=== PATIENT | female | born 1965 | race Caucasian/White ===

== ENCOUNTER 2020-10-30 10:34 | Observation (INO) | payer MEDICARE, OTHER ==
[2020-10-30] MEDS ORDERED: ASPIRIN 81 MG PO STA (10:47)
[2020-10-30] MEDS ORDERED: ONDANSETRON 4 MG/2 ML VIAL IVP STA (11:02)
[2020-10-30 11:06] LABS: Basophils # (A) 0.1 k/uL (0-0.2); Basophils % (A) 1 %; Eosinophils % (A) 0 %; HCT 42.6 % (34.0-46.0); HGB 14.1 gm/dL (11.4-16.0); Lymphocytes # (A) 3.4 k/uL (1.0-4.8); Lymphocytes % (A) 26 %; MCHC 33.2 g/dL (31.0-37.0); MCV 96.5 fL (80.0-100.0); Mean Platelet Volume 7.5; Monocytes # (A) 0.3 k/uL (0-1.0); Monocytes % (A) 3 %; Neutrophils # (A) 8.9 k/uL (1.3-7.7); Neutrophils % (A) 69 %; Platelet Count 310 k/uL (150-450); RBC 4.41 m/uL (3.80-5.40); RDW 13.7 % (11.5-15.5); WBC 12.9 k/uL (3.8-10.6)
[2020-10-30 11:16] LABS: INR 0.9 (<1.2); Partial Thromboplastin Time 24.8 sec (22.0-30.0); Prothrombin Time 9.9 sec (9.0-12.0)
[2020-10-30 11:26] LABS: ALT 26 U/L (4-34); AST 35 U/L (14-36); African American GFR (CKD) >90 (>60 ml/min/1.73 sqM); Albumin 4.7 g/dL (3.5-5.0); Alkaline Phosphatase 100 U/L (38-126); Anion Gap 7 mmol/L; Blood Urea Nitrogen 8 mg/dL (7-17); Calcium 9.4 mg/dL (8.4-10.2); Carbon Dioxide 25 mmol/L (22-30); Chloride 105 mmol/L (98-107); Glucose 117 mg/dL (74-99); Lipase 119 U/L (23-300); Magnesium 1.9 mg/dL (1.6-2.3); Non-African American GFR(CKD) >90 (>60 ml/min/1.73 sqM); Potassium 4.2 mmol/L (3.5-5.1); Sodium 137 mmol/L (137-145); Total Bilirubin 0.6 mg/dL (0.2-1.3); Total Protein 7.5 g/dL (6.3-8.2)
--- NOTE | 2020-10-30 11:44 | XR ---
EXAMINATION TYPE: XR chest 2V DATE OF EXAM: 10/30/2020 COMPARISON: None INDICATION: Chest pain right side TECHNIQUE: Frontal and lateral views of the chest are obtained. FINDINGS: The heart size is normal. The pulmonary vasculature is normal. The lungs are clear. Anterior cervical fusion is evident lower cervical spine IMPRESSION: 1. No acute pulmonary process.
--- NOTE | 2020-10-30 12:12 | ED ---
Chest Pain HPI - General Chief Complaint: Chest Pain Stated Complaint: chest pain, arm throbbing Time Seen by Provider: 10/30/20 10:46 Source: patient, RN notes reviewed Mode of arrival: wheelchair Limitations: no limitations - History of Present Illness Initial Comments: 55-year-old female presented to the emergency Department with chief complaint of chest discomfort, left arm pain. She states she's been left arm pain but states that she's having sharp stabbing chest pain some upper abdominal pain. States she feels bloated. Patient does have a history of hyperlipidemia. Patient states he does not feel well. No prior cardiac disease. Denies any diaphoresis slight nausea no back pain no current headache. Patient has had prior neck surgery. - Related Data Allergies Allergy/AdvReac Type Severity Reaction Status Date / Time No Known Allergies Allergy Verified 10/30/20 10:40 Review of Systems ROS Statement: Those systems with pertinent positive or pertinent negative responses have been documented in the HPI. ROS Other: All systems not noted in ROS Statement are negative. EKG Findings - EKG Comments: EKG Findings:: EKG performed at 10:47 sinus rhythm with a rate of 96 KS 136 QRS 96 QT/QTC 378/477 Past Medical History Past Medical History: Hyperlipidemia History of Any Multi-Drug Resistant Organisms: None Reported Past Surgical History: Tubal Ligation Additional Past Surgical History / Comment(s): Plate in neck Past Psychological History: Bipolar, Schizophrenia Smoking Status: Current every day smoker Past Alcohol Use History: None Reported Past Drug Use History: None Reported General Exam Limitations: no limitations General appearance: alert, in no apparent distress Head exam: Present: atraumatic, normocephalic, normal inspection Eye exam: Present: normal appearance, PERRL, EOMI. Absent: scleral icterus, conjunctival injection, periorbital swelling Neck exam: Present: normal inspection, full ROM. Absent: tenderness, meningismus, lymphadenopathy Respiratory exam: Present: normal lung sounds bilaterally. Absent: respiratory distress, wheezes, rales, rhonchi, stridor, chest wall tenderness Cardiovascular Exam: Present: regular rate, normal rhythm, normal heart sounds. Absent: systolic murmur, diastolic murmur, rubs, gallop, clicks GI/Abdominal exam: Present: soft, tenderness (Epigastric), normal bowel sounds. Absent: distended, guarding, rebound, rigid Course Vital Signs 10/30/20 10/30/20 10:37 10:53 Temperature 98 F 98.8 F Pulse Rate 96 93 Respiratory 16 16 Rate Blood Pressure 145/75 107/65 O2 Sat by Pulse 97 98 Oximetry Chest Pain MDM - MDM Patient continues chest discomfort, left arm pain initial workup including labs EKG and chest x-ray do not reveal any acute abnormality, Patiently admitted for cardiac rule out case discussed with Dr. Sparrow. Disposition Clinical Impression: Chest pain Disposition: ADMITTED IP TO THIS HOSP Condition: Fair Referrals: Sima Delcid DO [Primary Care Provider] - 1-2 days
[2020-10-30] MEDS ORDERED: NITROGLYCERIN SL TABS 0.4 MG TAB SUBLINGUAL PRN (13:03)
[2020-10-30 16:11] VITALS: BP 117/77; PULSE 98; RESP 18; TEMP 98
--- NOTE | 2020-10-30 16:36 | P.CRDCN ---
History of Present Illness Consult date: 10/30/20 Chief complaint: Chest pain History of present illness: This is a very pleasant 55-year-old female patient with no significant past medical history presented to the emergency department complaining of chest discomfort. She describes discomfort in the middle of the chest as "needles in the chest" and as a sharp kind of discomfort. She stated that also she was experiencing some left arm discomfort. She denies any shortness of breath or dizziness or lightheadedness or sweating or any feeling of heart racing or fluttering or syncope. No history of coronary artery disease or congestive heart failure or cardiac arrhythmia. She does have dyslipidemia as a risk factor for coronary artery disease. The EKG showed sinus rhythm without any s ignificant ST or T-wave abnormalities. She underwent troponin 3 sets and that came in to be unremarkable. The chest x-ray did not show any acute abnormalities. I recommended monitoring the patient for additional 24 hours and obtain a stress test in the morning. Past Medical History Past Medical History: Hyperlipidemia History of Any Multi-Drug Resistant Organisms: None Reported Past Surgical History: Tubal Ligation Additional Past Surgical History / Comment(s): Plate in neck Past Psychological History: Bipolar, Schizophrenia Smoking Status: Current every day smoker Past Alcohol Use History: None Reported Past Drug Use History: None Reported Medications and Allergies Home Medications Medication Instructions Recorded Confirmed Type Citalopram Hydrobromide 20 mg PO BID 10/30/20 10/30/20 History [Citalopram HBr] Ibuprofen [Advil] 200 mg PO Q6HR PRN 10/30/20 10/30/20 History Levothyroxine Sodium [Synthroid] 88 mcg PO DAILY 10/30/20 10/30/20 History Meloxicam [Mobic] 15 mg PO DAILY 10/30/20 10/30/20 History Pravastatin Sodium [Pravachol] 20 mg PO DAILY 10/30/20 10/30/20 History QUEtiapine FUMARATE 50 mg PO HS 10/30/20 10/30/20 History guaiFENesin [Mucinex] 600 mg PO BID PRN 10/30/20 10/30/20 History tiZANidine [Zanaflex] 2 mg PO Q8HR PRN 10/30/20 10/30/20 History Allergies Allergy/AdvReac Type Severity Reaction Status Date / Time No Known Allergies Allergy Verified 10/30/20 12:36 Physical Exam Vitals: Vital Signs Temp Pulse Resp BP Pulse Ox 10/30/20 16:08 98.0 F 98 18 117/77 97 10/30/20 13:37 86 16 96 10/30/20 10:53 98.8 F 93 16 107/65 98 10/30/20 10:37 98 F 96 16 145/75 97 Intake and Output 10/30/20 10/30/20 10/30/20 06:59 14:59 22:59 Other: Weight 82.1 kg - Constitutional General appearance: no acute distress - Respiratory Respiratory: bilateral: CTA - Cardiovascular Rhythm: regular Heart sounds: normal: S1, S2 Abnormal Heart Sounds: systolic murmur Results 10/30/20 10:53 10/30/20 10:53 Cardiac Enzymes 10/30/20 10/30/20 10/30/20 Range/Units 10:53 10:53 13:55 AST 35 (14-36) U/L Troponin I <0.012 <0.012 (0.000-0.034) ng/mL Coagulation 10/30/20 Range/Units 10:53 PT 9.9 (9.0-12.0) sec APTT 24.8 (22.0-30.0) sec CBC 10/30/20 Range/Units 10:53 WBC 12.9 H (3.8-10.6) k/uL RBC 4.41 (3.80-5.40) m/uL Hgb 14.1 (11.4-16.0) gm/dL Hct 42.6 (34.0-46.0) % Plt Count 310 (150-450) k/uL Comprehensive Metabolic Panel 10/30/20 Range/Units 10:53 Sodium 137 (137-145) mmol/L Potassium 4.2 (3.5-5.1) mmol/L Chloride 105 (98-107) mmol/L Carbon Dioxide 25 (22-30) mmol/L BUN 8 (7-17) mg/dL Creatinine 0.51 L (0.52-1.04) mg/dL Glucose 117 H (74-99) mg/dL Calcium 9.4 (8.4-10.2) mg/dL AST 35 (14-36) U/L ALT 26 (4-34) U/L Alkaline Phosphatase 100 (38-126) U/L Total Protein 7.5 (6.3-8.2) g/dL Albumin 4.7 (3.5-5.0) g/dL Current Medications Generic Name Dose Route Start Last Admin Trade Name Freq PRN Reason Stop Dose Admin Aspirin 325 mg 10/31/20 09:00 Aspirin 325 Mg Tab PO DAILY NORBERT Nitroglycerin 0.4 mg 10/30/20 13:03 Nitroglycerin Sl Tabs 0.4 Mg Tab SUBLINGUAL Q5M PRN Chest Pain Intake and Output 10/30/20 10/30/20 10/30/20 06:59 14:59 22:59 Other: Weight 82.1 kg Patient Weight 10/31/20 06:59 Weight 82.1 kg 10/30/20 10:53 10/30/20 10:53 Assessment and Plan Assessment: Assessment #1 atypical chest discomfort #2 dyslipidemia Plan #1 acute coronary event was ruled out #2 follow-up on the echocardiogram #3 stress test in the morning
--- NOTE | 2020-10-30 17:00 | ECHOF ---
Referral Reason:chest pain MEASUREMENTS -------- HEIGHT: 152.4 cm WEIGHT: 83.9 kg BP: IVSd: 1.1 cm (0.6 - 1.1) LVIDd: 4.5 cm (3.9 - 5.3) LVPWd: 1.3 cm (0.6 - 1.1) IVSs: 1.3 cm LVIDs: 3.3 cm LVPWs: 1.6 cm LAESV Index (A-L): 29.79 ml/m Ao Diam: 2.6 cm (2.0 - 3.7) AV Cusp: 2.2 cm (1.5 - 2.6) LA Diam: 3.6 cm (2.7 - 3.8) MV EXCURSION: 23.254 mm (> 18.000) MV EF SLOPE: 71 mm/s (70 - 150) EPSS: 0.2 cm MV E Juventino: 0.46 m/s MV DecT: 236 ms MV A Juventino: 0.87 m/s MV E/A Ratio: 0.53 RAP: 5.00 mmHg RVSP: 17.66 mmHg FINDINGS -------- Sinus rhythm. This was a technically good study. LV size, wall thickness and systolic function are normal, with an EF greater than 55%. The left sammie tricular size is normal. The right ventricle is normal in size. LA is midly dilated 29-33ml/m2. The right atrial size is normal. There is mild aortic regurgitation. Mild mitral regurgitation is present. Mild tricuspid regurgitation present. Right ventricular systolic pressure is normal at < 35 mmHg. There is no pulmonic regurgitation present. The aortic root size is normal. There is no pericardial effusion. CONCLUSIONS -------- 1. LV size, wall thickness and systolic function are normal, with an EF greater than 55%. 2. The left ventricular size is normal. 3. The right ventricle is normal in size. 4. LA is midly dilated 29-33ml/m2. 5. There is mild aortic regurgitation. 6. Mild mitral regurgitation is present. 7. Mild tricuspid regurgitation present. 8. The aortic root size is normal. 9. There is no pericardial effusion. SAND HAULER: Yesy Wiggins RDCS
[2020-10-31] MEDS ORDERED: ASPIRIN 325 MG TAB PO SCH (09:00)
== END 2020-10-30 17:22 | disposition left against medical advice (07) ==
LOC: EC 10:34 → 1SOBS 13:03 → 6NMEDSUR 16:24
PROVIDERS: ADMIT Internal Medicine; ATTEND Internal Medicine
DX: R07.89 Other chest pain (principal); E78.5 Hyperlipidemia, unspecified; F17.200 Nicotine dependence, unspecified, uncomplicated; F20.9 Schizophrenia, unspecified; F31.9 Bipolar disorder, unspecified; Z79.1 Long term (current) use of non-steroidal anti-inflammatories (NSAID); Z79.890 Hormone replacement therapy; Z79.899 Other long term (current) drug therapy
CPT/HCPCS: 99285; 93306; 96374; 36415; 93005; 83880; 80053; 83690; 83735; 84484; 85025; 85610; 85730; 71046; G0378; J2405

== ENCOUNTER → 2021-01-21 | Outpatient (CLI) | payer MEDICARE, OTHER ==
--- NOTE | 2021-01-21 16:47 | MR ---
EXAMINATION TYPE: MR cervical spine wo con DATE OF EXAM: 01/21/2021 COMPARISON: Plain film 09/11/2009 HISTORY: Pain in back of neck, pain shooting down left arm for over a month. Hx of neck fx in 2019 TECHNIQUE: Multiplanar, multisequence images of the cervical spine were acquired without contrast. C2-C3: No evidence for degenerative disc disease. No disc bulge/herniation or protrusion. No Canal stenosis. Foramina are patent bilaterally. C3-C4: No evidence for degenerative disc disease. No disc bulge/herniation or protrusion. No Canal stenosis. Foramina are patent bilaterally. C4-C5: There is some mild uncovertebral joint hypertrophy, facet arthropathy causing some foraminal e ncroachment right greater than left. No disc herniation. C5-C6: Posterior extension endplate disc complex is present, there is eccentric extension to the left posterior paracentral location and there may be contact with the anterior cervical cord, there is le ft-sided foraminal encroachment greater than right, uncovertebral joint hypertrophy contributing to c ause foraminal encroachment. C6-C7: Postop changes are present. There is uncovertebral joint hypertrophy causing some left-sided f oraminal encroachment. No disc herniation. C7-T1: No evidence for degenerative disc disease. No disc bulge/herniation or protrusion. No Canal stenosis. Foramina are patent bilaterally. Cervical segments are intact. There is normal alignment. Cervical spinal cord is of normal signal. Craniovertebral junction relationships are within normal limits. Patient is status post anterior ce rvical fusion and discectomy at C6-7. Cervical vertebral bodies show preserved height. There is spond ylosis at C5-6 with some endplate discogenic marrow signal change. No significant spinal stenosis. IMPRESSION: Degenerative disc disease most significant at C5-6, postop changes
== END | disposition home or self-care (01) ==
LOC: RADMRIMAIN 15:44
PROVIDERS: ATTEND Neurological Surgery
DX: M50.322 Other cervical disc degeneration at C5-C6 level (principal)
CPT/HCPCS: 72141

== ENCOUNTER → 2021-03-26 | Outpatient (CLI) | payer MEDICARE, OTHER ==
[2021-03-26 14:17] LABS: INR 0.9 (<1.2); Partial Thromboplastin Time 25.2 sec (22.0-30.0); Prothrombin Time 9.7 sec (9.0-12.0)
[2021-03-26 15:47] LABS: Appearance,Urine Cloudy (Clear); Bacteria,Urine Rare /hpf; Bilirubin,Urine Negative (Negative); Blood,Urine Negative (Negative); Color,Urine Yellow; Glucose,Urine (UA) Negative (Negative); Ketones,Urine Negative (Negative); Leukocyte Esterase,Urine Negative (Negative); Mucus,Urine Rare /hpf; Nitrite,Urine Negative (Negative); PH, Urine 5.5 (5.0-8.0); Protein,Urine Negative (Negative); RBC,Urine 1 /hpf (0-5); Specific Gravity,Urine 1.021 (1.001-1.035); Squamous Epithelial Cell,Urine 3 /hpf (0-4); Urobilinogen,Urine <2.0 mg/dL (<2.0); WBC,Urine 1 /hpf (0-5)
[2021-03-26 18:13] LABS: Basophils # (A) 0.07 X 10*3/uL (0.00-0.10); Basophils % (A) 0.5 %; Eosinophils # (A) 0.08 X 10*3/uL (0.04-0.35); Eosinophils % (A) 0.5 %; HCT 41.9 % (37.2-46.3); HGB 13.4 g/dL (12.0-15.0); Lymphocytes # (A) 4.91 X 10*3/uL (0.90-5.00); Lymphocytes % (A) 31.8 %; MCH 30.2 pg (27.0-32.0); MCV 94.4 fL (80.0-97.0); Mean Platelet Volume 10.8 fL (9.5-12.2); Monocytes # (A) 0.82 X 10*3/uL (0.20-1.00); Monocytes % (A) 5.3 %; Neutrophils # (A) 9.48 X 10*3/uL (1.80-7.70); Neutrophils % (A) 61.4 %; Platelet Count 305 X 10*3/uL (140-440); RBC 4.44 X 10*6/uL (4.10-5.20); RDW 13.5 % (11.5-14.5); WBC 15.43 X 10*3/uL (4.50-10.00)
[2021-03-26 19:09] LABS: ALT 36 U/L (8-44); AST 28 U/L (13-35); African American GFR (CKD) 111.5 (60.0-200.0); Albumin 4.4 g/dL (3.8-4.9); Albumin/Globulin Ratio 1.91 (1.60-3.17); Alkaline Phosphatase 86 U/L (41-126); Blood Urea Nitrogen 17.5 mg/dL (9.0-27.0); Calcium 9.1 mg/dL (8.7-10.3); Carbon Dioxide 21.4 mmol/L (20.0-27.5); Chloride 109 mmol/L (96-109); Globulin 2.3 g/dL (1.6-3.3); Glucose 93 mg/dL (70-110); Non-African American GFR(CKD) 96.2 (60.0-200.0); Potassium 4.2 mmol/L (3.5-5.5); Sodium 143 mmol/L (135-145); Total Bilirubin <0.20 mg/dL (0.30-1.20); Total Protein 6.7 g/dL (6.2-8.2)
--- NOTE | 2021-03-26 19:22 | XR ---
EXAMINATION TYPE: XR chest 2V DATE OF EXAM: 03/26/2021 COMPARISON: 10/30/2020 HISTORY: 55-year-old female [id number], preoperative assessment for cervical spine surgery. TECHNIQUE: Frontal and lateral views FINDINGS: ACDF hardware. Heart normal size. Mild central interstitial prominence/peribronchial cuffing. No cons olidation or pleural effusion. IMPRESSION: Some interstitial prominence could reflect bronchitis or asthma. No focal infiltrate.
== END | disposition home or self-care (01) ==
LOC: LABWHC1 12:55
PROVIDERS: ATTEND Neurological Surgery
DX: M54.12 Radiculopathy, cervical region (principal)
CPT/HCPCS: 80053; 85025; 85610; 85730; 81001; 87070; 71046; 36415; U0003; C9803

== ENCOUNTER → 2021-06-18 | Outpatient (CLI) | payer MEDICARE, OTHER ==
--- NOTE | 2021-06-18 14:40 | XR ---
EXAMINATION TYPE: XR chest 2V DATE OF EXAM: 06/18/2021 COMPARISON: 03/26/21 HISTORY: Shortness of breath TECHNIQUE: Frontal and lateral views of the chest are obtained. FINDINGS: Scattered senescent parenchymal changes noted. No evidence for infiltrate. No evidence for atelectasis. Heart size is stable. Mediastinal structures are stable and grossly unremarkable. No evidence for hilar prominence. Degenerative changes dorsal spine. IMPRESSION: 1. No evidence for acute pulmonary disease.
[2021-06-18 15:19] LABS: Appearance,Urine Clear (Clear); Bilirubin,Urine Negative (Negative); Blood,Urine Negative (Negative); Color,Urine Yellow; Glucose,Urine (UA) Negative (Negative); Ketones,Urine Negative (Negative); Leukocyte Esterase,Urine Negative (Negative); Nitrite,Urine Negative (Negative); PH, Urine 5.5 (5.0-8.0); Protein,Urine Trace (Negative); Specific Gravity,Urine 1.032 (1.001-1.035)
[2021-06-18 15:20] LABS: INR 0.9 (<1.2); Partial Thromboplastin Time 26.2 sec (22.0-30.0); Prothrombin Time 10.1 sec (9.0-12.0)
[2021-06-18 23:13] LABS: Basophils # (A) 0.07 X 10*3/uL (0.00-0.10); Basophils % (A) 0.6 %; Eosinophils # (A) 0.08 X 10*3/uL (0.04-0.35); Eosinophils % (A) 0.7 %; HCT 42.8 % (37.2-46.3); HGB 13.5 g/dL (12.0-15.0); Immature Grans, Automated 0.4 %; Lymphocytes # (A) 4.42 X 10*3/uL (0.90-5.00); Lymphocytes % (A) 37.4 %; MCH 30.6 pg (27.0-32.0); MCHC 31.5 g/dL (32.0-37.0); MCV 97.1 fL (80.0-97.0); Mean Platelet Volume 10.3 fL (9.5-12.2); Monocytes % (A) 5.9 %; NRBC Per 100 WBC 0 /100 WBCS (0.0-0.0); Platelet Count 322 X 10*3/uL (140-440); RBC 4.41 X 10*6/uL (4.10-5.20); RDW 13.8 % (11.5-14.5); WBC 11.82 X 10*3/uL (4.50-10.00)
[2021-06-19 00:16] LABS: ALT 42 U/L (8-44); AST 25 U/L (13-35); African American GFR (CKD) 116.4 (60.0-200.0); Albumin 4.4 g/dL (3.8-4.9); Albumin/Globulin Ratio 1.76 (1.60-3.17); Alkaline Phosphatase 82 U/L (41-126); BUN/Creat Ratio 21.33 Ratio (12.00-20.00); Blood Urea Nitrogen 12.8 mg/dL (9.0-27.0); Calcium 9.1 mg/dL (8.7-10.3); Carbon Dioxide 20.9 mmol/L (20.0-27.5); Chloride 106 mmol/L (96-109); Globulin 2.5 g/dL (1.6-3.3); Glucose 86 mg/dL (70-110); Non-African American GFR(CKD) 100.5 (60.0-200.0); Potassium 3.9 mmol/L (3.5-5.5); Sodium 139 mmol/L (135-145); Total Bilirubin <0.15 mg/dL (0.30-1.20); Total Protein 6.9 g/dL (6.2-8.2)
[2021-06-19 17:06] LABS: Coronavirus SARS CoV-2 Not Detected (Not Detected)
== END | disposition home or self-care (01) ==
LOC: LABWHC1 13:55
PROVIDERS: ATTEND Neurological Surgery
DX: M54.12 Radiculopathy, cervical region (principal); M51.36 Other intervertebral disc degeneration, lumbar region
CPT/HCPCS: 80053; 85025; 85610; 85730; 81003; 87070; 71046; 93005; 36415; U0003

== ENCOUNTER → 2021-06-18 | Outpatient (CLI) | payer MEDICARE, OTHER | END | disposition home or self-care (01) | LOC: LABWHC1 13:58 | PROVIDERS: ATTEND Internal Medicine Medical Oncology | DX: Z53.9 Procedure and treatment not carried out, unspecified reason (principal); D72.828 Other elevated white blood cell count ==

== ENCOUNTER 2021-08-23 20:25 | Emergency (ER) | payer MEDICARE, OTHER ==
[2021-08-23 20:30] VITALS: BP 129/82; PULSE 96; RESP 18; TEMP 98.7
--- NOTE | 2021-08-23 20:56 | XR ---
Result: History: Pain. Comparison: None available. Technique: 3 views of the left knee. Findings: No acute fracture or dislocation is seen. The visualized osseous structures are in anatomic alignmen t. The joint spaces are preserved. There is no significant knee joint effusion. Impression: No acute osseous abnormality.
--- NOTE | 2021-08-23 22:38 | ED ---
Lower Extremity Injury HPI - General Chief Complaint: Extremity Injury, Lower Stated Complaint: L knee pain Time Seen by Provider: 08/23/21 22:22 Source: patient, RN notes reviewed, old records reviewed Mode of arrival: wheelchair Limitations: no limitations - History of Present Illness Initial Comments: This is a 56-year-old female to the emergency department with left knee pain left knee pain for a few days. Patient notes popping sound of snapping sound pain initially started but the pain has been persistent worse when she bears weight. Patient has some significant swelling worse in that left knee no help with [id number] Motrin Tylenol. But no significant somatic injury was noted MD Complaint: knee injury -: days(s) Injury: Knee: Left Type of Injury: inversion, eversion, hyperextension Place: home Severity: moderate Severity scale (1-10): 4 Improves With: nothing Worsens With: weight bearing Context: walking Associated Symptoms: snap/pop sensation, swelling Treatments Prior to Arrival: NSAIDS - Related Data Home Medications Medication Instructions Recorded Confirmed Citalopram Hydrobromide 20 mg PO BID 10/30/20 10/30/20 [Citalopram HBr] Ibuprofen [Advil] 200 mg PO Q6HR PRN 10/30/20 10/30/20 Levothyroxine Sodium [Synthroid] 88 mcg PO DAILY 10/30/20 10/30/20 Meloxicam [Mobic] 15 mg PO DAILY 10/30/20 10/30/20 Pravastatin Sodium [Pravachol] 20 mg PO DAILY 10/30/20 10/30/20 QUEtiapine FUMARATE 50 mg PO HS 10/30/20 10/30/20 guaiFENesin [Mucinex] 600 mg PO BID PRN 10/30/20 10/30/20 tiZANidine [Zanaflex] 2 mg PO Q8HR PRN 10/30/20 10/30/20 Allergies Allergy/AdvReac Type Severity Reaction Status Date / Time No Known Allergies Allergy Verified 08/23/21 20:30 Review of Systems ROS Statement: Those systems with pertinent positive or pertinent negative responses have been documented in the HPI. ROS Other: All systems not noted in ROS Statement are negative. Past Medical History Past Medical History: Hyperlipidemia History of Any Multi-Drug Resistant Organisms: None Reported Past Surgical History: Orthopedic Surgery, Tubal Ligation Additional Past Surgical History / Comment(s): Plate in neck Past Psychological History: Bipolar, Schizophrenia Smoking Status: Current every day smoker Past Alcohol Use History: None Reported Past Drug Use History: None Reported General Exam Limitations: no limitations General appearance: alert, in no apparent distress Head exam: Present: atraumatic, normocephalic, normal inspection Eye exam: Present: normal appearance, PERRL, EOMI. Absent: scleral icterus, conjunctival injection, periorbital swelling ENT exam: Present: normal exam, mucous membranes moist Neck exam: Present: normal inspection. Absent: tenderness, meningismus, lymphadenopathy Respiratory exam: Present: normal lung sounds bilaterally. Absent: respiratory distress, wheezes, rales, rhonchi, stridor Cardiovascular Exam: Present: regular rate, normal rhythm, normal heart sounds. Absent: systolic murmur, diastolic murmur, rubs, gallop, clicks GI/Abdominal exam: Present: soft, normal bowel sounds. Absent: distended, tenderness, guarding, rebound, rigid Extremities exam: Present: normal inspection, tenderness, normal capillary refill, other (Doesn't mild effusion and tenderness to left knee suprapatella). Absent: full ROM, pedal edema, joint swelling, calf tenderness Back exam: Present: normal inspection Neurological exam: Present: alert, oriented X3, CN II-XII intact Psychiatric exam: Present: normal affect, normal mood Skin exam: Present: warm, dry, intact, normal color. Absent: rash Course Vital Signs 08/23/21 20:28 Temperature 98.7 F Pulse Rate 96 Respiratory 18 Rate Blood Pressure 129/82 O2 Sat by Pulse 98 Oximetry - Reevaluation(s) Reevaluation #1: 08/23/21 Medical record is reviewed Patient symptoms are improved here in the ER Patient informed of results and questions answered Medical Decision Making - Medical Decision Making 56 female DEL with left knee pain. No acute injury noted. Likely meniscus tear. Patient will follow-up with orthopedics on as-needed basis and can be discharged home - Radiology Data Radiology results: report reviewed (X-ray left knee is negative for traumatic injury), image reviewed Disposition Clinical Impression: Left knee sprain Disposition: HOME SELF-CARE Condition: Good Instructions (If sedation given, give patient instructions): Knee Sprain (ED) Is patient prescribed a controlled substance at d/c from ED?: No Referrals: Sima Delcid DO [Primary Care Provider] - 1-2 days Belen Ackerman DO [Doctor of Osteopathic Medicine] - 1-2 days
[2021-08-23] MEDS ORDERED: ACET/COD 300 MG/30 MG STARTER PACK 6 TAB BTL PO STA (22:39)
== END 2021-08-23 23:09 | disposition home or self-care (01) ==
LOC: EC 20:25
DX: S83.92XA Sprain of unspecified site of left knee, initial encounter (principal); E78.5 Hyperlipidemia, unspecified; F17.200 Nicotine dependence, unspecified, uncomplicated; X58.XXXA Exposure to other specified factors, initial encounter
CPT/HCPCS: 73562; 99283; L1830

== ENCOUNTER → 2021-09-25 | Outpatient (CLI) | payer MEDICARE, OTHER ==
--- NOTE | 2021-09-26 15:10 | MR ---
EXAMINATION TYPE: MR knee LT wo con DATE OF EXAM: 09/25/2021 COMPARISON: Plain film 09/08/2021 HISTORY: Left knee pain and swelling TECHNIQUE: Multiplanar, multisequence imaging of the left knee is performed without IV contrast. FINDINGS: MEDIAL MENISCUS: The meniscal root posteriorly is not seen to be continuous. Intrinsic signal within the medial meniscus may be degenerative LATERAL MENISCUS: Anterior and posterior horns are intact without tear. CRUCIATE LIGAMENTS: The anterior and posterior cruciate ligaments are intact and unremarkable. COLLATERAL LIGAMENTS: The medial collateral ligament shows some fluid signal along its course but is intact consistent with strain, the lateral collateral ligament complex is intact and unremarkable. EXTENSOR MECHANISM: Visualized quadriceps and patellar tendons are intact. EFFUSION: Suprapatellar joint effusion is present POPLITEAL CYST: No popliteal/hudson cyst. TRICOMPARTMENT SPACES: Maintained CARTILAGE: Grade III chondromalacia noted along the medial femoral condyle, there is a meniscal fissu re seen on coronal image #20 BONE MARROW SIGNAL: No focal abnormal marrow signal is appreciated. OTHER: At the posterior aspect of the distal portion of the femur there is some areas of irregular f luid signal, possible ganglion cyst formation, coronal image #20, axial image 27. Along the IMPRESSION: Consider meniscal root tear medial meniscus, findings at the posterior aspect of the femur distally a s described, correlate for possible medial collateral ligament strain
== END | disposition home or self-care (01) ==
LOC: RADMRIMAIN 11:00
PROVIDERS: ATTEND Orthopaedic Surgery
DX: M25.562 Pain in left knee (principal)

== ENCOUNTER → 2021-09-25 | Outpatient (CLI) | payer MEDICARE, OTHER ==
[2021-09-25 18:35] LABS: HCT 48.5 % (37.2-46.3); HGB 15.1 g/dL (12.0-15.0); MCHC 31.1 g/dL (32.0-37.0); MCV 96.2 fL (80.0-97.0); Mean Platelet Volume 10.7 fL (9.5-12.2); NRBC Per 100 WBC 0 /100 WBCS (0.0-0.0); Platelet Count 330 X 10*3/uL (140-440); RBC 5.04 X 10*6/uL (4.10-5.20); RDW 14.4 % (11.5-14.5); WBC 15.69 X 10*3/uL (4.50-10.00)
[2021-09-25 19:30] LABS: Basophils # (A) 0.07 X 10*3/uL (0.00-0.10); Basophils % (A) 0.4 %; Eosinophils # (A) 0.07 X 10*3/uL (0.04-0.35); Eosinophils % (A) 0.4 %; Immature Grans, Automated 0.4 %; Lymphocytes % (A) 35.7 %; Monocytes # (A) 0.77 X 10*3/uL (0.20-1.00); Monocytes % (A) 4.9 %; Neutrophils # (A) 9.12 X 10*3/uL (1.80-7.70); Neutrophils % (A) 58.2 %
== END | disposition home or self-care (01) ==
LOC: LABWHC1 11:41
PROVIDERS: ATTEND Internal Medicine Medical Oncology
DX: D72.828 Other elevated white blood cell count (principal)
CPT/HCPCS: 36415; 85025

== ENCOUNTER → 2021-10-10 | Outpatient (CLI) | payer MEDICARE, OTHER ==
[2021-10-10 14:48] LABS: Basophils % (A) 0.9 %; Eosinophils # (A) 0.08 X 10*3/uL (0.04-0.35); Eosinophils % (A) 0.7 %; HGB 14.1 g/dL (12.0-15.0); Immature Grans, Automated 0.4 %; Lymphocytes # (A) 4.19 X 10*3/uL (0.90-5.00); Lymphocytes % (A) 36.9 %; MCH 30.2 pg (27.0-32.0); MCHC 31.3 g/dL (32.0-37.0); MCV 96.4 fL (80.0-97.0); Mean Platelet Volume 11.4 fL (9.5-12.2); Monocytes # (A) 0.51 X 10*3/uL (0.20-1.00); Monocytes % (A) 4.5 %; NRBC Per 100 WBC 0 /100 WBCS (0.0-0.0); Neutrophils # (A) 6.42 X 10*3/uL (1.80-7.70); Neutrophils % (A) 56.6 %; Platelet Count 292 X 10*3/uL (140-440); RBC 4.67 X 10*6/uL (4.10-5.20); RDW 14.5 % (11.5-14.5); WBC 11.34 X 10*3/uL (4.50-10.00)
[2021-10-10 15:11] LABS: Anion Gap 10.6 mmol/L (10.00-18.00); Carbon Dioxide 26.3 mmol/L (20.0-27.5); Potassium 4.7 mmol/L (3.5-5.5)
== END | disposition home or self-care (01) ==
LOC: LABPAT 09:51
PROVIDERS: ATTEND Orthopaedic Surgery
DX: Z01.812 Encounter for preprocedural laboratory examination (principal); M23.92 Unspecified internal derangement of left knee
CPT/HCPCS: 36415; 80051; 85025

== ENCOUNTER → 2021-10-10 | Outpatient (CLI) | payer MEDICARE, OTHER | END | disposition home or self-care (01) | LOC: LABWHC1 09:53 | PROVIDERS: ATTEND Internal Medicine Medical Oncology | DX: D72.828 Other elevated white blood cell count (principal) | CPT/HCPCS: 36415 ==

== ENCOUNTER 2021-10-14 08:34 | Day surgery (SDC) | payer MEDICARE, OTHER ==
[2021-10-09 11:20] VITALS: BMI 39.2
--- NOTE | 2021-10-13 12:24 | HP ---
HISTORY AND PHYSICAL CHIEF COMPLAINT: Left knee pain. HISTORY OF PRESENT ILLNESS: Patient is a 56-year-old female who presents with left knee pain after an injury on 08/30/2021. She got up off a couch when she felt a pop in her knee. She notes instability, swelling and pain ever since. She denies previous problems. She has tried an injection and medications without much relief. PAST MEDICAL HISTORY: Significant for anxiety, bipolar disorder, depression, liver disease, hypertension, hypothyroidism. PAST SURGICAL HISTORY: Significant for cervical fusion and tubal ligation. CURRENT MEDICATIONS: Klonopin, Seroquel, Synthroid, and Tylenol No.3. ALLERGIES: MOTRIN. FAMILY HISTORY: Noncontributory. SOCIAL HISTORY: Significant for tobacco use. REVIEW OF SYSTEMS: 16-point review of systems otherwise reviewed and is noncontributory. PHYSICAL EXAMINATION: On examination, patient is approximately 4 foot 10, 208 pounds of endomorphic habitus. HEENT exam is nonfocal. Neck is supple. She has painless passive motion of her left hip. Straight-leg raise is negative. Active motion left knee: Minus 6 to 115 degrees of flexion. She is tender about the medial joint line. She has mild effusion. She is tender about the medial joint line. Collaterals are stable. Lee Ann is negative. Camron's elicits medial pain. MRI report left knee 09/25/2021 shows evidence of a posterior medial meniscal tear along with medial femoral condyle chondral injury. IMPRESSION: 1. Left knee internal derangement/symptomatic medial meniscal tear. 2. Left knee medial femoral condyle chondral injury. RECOMMENDATIONS: I talked to the patient at length regarding her condition along with treatment options. At this point, she is having pain and mechanical symptoms after this acute injury despite conservative measures. After thorough discussion, she opts to proceed with surgery. We will plan to proceed with left knee arthroscopy with possible partial medial meniscectomy in addition to medial femoral conducting me. We will likely perform that as an outpatient procedure. Risks and benefits were discussed at length in layman's terms. MMODL / IJN: [id number] /
[~2021-10-14 08:34] MED LIST: DEXAMETHASONE SOD PHOSPHATE 4 MG/ML 1 ML VIAL IV ONE; LACTATED RINGERS 1,000 ML IV SCH; LIDOCAINE 1% (10MG/ML) FOR IV START INTRADERMA PRN; METOCLOPRAMIDE 5 MG/ML 2 ML VIAL IVP PRN; ONDANSETRON 4 MG/2 ML VIAL IVP ONE
[2021-10-14] MEDS ORDERED: diphenhydrAMINE 50 MG/ML 1 ML VIAL ONE (09:44)
[2021-10-14] MEDS ORDERED: PROPOFOL 10 MG/ML 20 ML VIAL IV ONE (09:44)
[2021-10-14] MEDS ORDERED: fentaNYL (PF) 50 MCG/ML 2 ML AMP ONE (09:44)
[2021-10-14] MEDS ORDERED: MIDAZOLAM 2 MG/2 ML VIAL ONE (09:44)
[2021-10-14] MEDS ORDERED: KETOROLAC 15 MG/ML 1 ML VIAL ONE (09:44)
[2021-10-14] MEDS ORDERED: LIDOCAINE 2% INJ 20 MG/ML (2 ML VIAL) ONE (09:44)
[2021-10-14] MEDS ORDERED: EPINEPHrine 4 MG in SODIUM CHLORIDE 0.9% IRRIGATIO 3,000 ML IRRIGATION ONE (10:05)
--- NOTE | 2021-10-14 10:39 | P.OP ---
Date of Procedure: 10/14/21 Preoperative Diagnosis: Left knee internal derangement Postoperative Diagnosis: Left knee posterior medial meniscal tear/grade 2 chondral injury posterior central medial femoral condyle Procedure(s) Performed: Left knee arthroscopic partial medial meniscectomy/medial femoral chondrectomy Anesthesia: GYPSY Surgeon: Vijay Carrasco Estimated Blood Loss (ml): 10 Pathology: none sent Condition: stable Disposition: PACU Indications for Procedure: The patient is a 56-year-old female who presents with progressive left knee pain and mechanical symptoms despite conservative measures. A discussion of the risks and benefits of operative intervention versus continued conservative measu res was made with the patient. She opted to proceed with surgery. Operative risks to include infection, neurovascular injury, development of blood clots, possible incomplete resolution of symptoms and need for subsequent procedures was discussed. Informed consent was obtained. Operative Findings: As below Description of Procedure: The patient was brought to the operating room, and after induction of general anesthesia examined the left knee. Collaterals were stable, Lee Ann was negative, and posterior drawer was negative. The left lower extremity was prepped and draped in a normal fashion. A superior lateral portal was made through a 3 mm skin incision superior and lateral to the patella. This was used for outflow. A lateral portal was made through a 5 mm vertical skin incision lateral to the patella tendon above the joint line. Diagnostic arthroscopy was performed. On inspection of the medial compartment, and oblique tear involving the posterior most aspect of the medial meniscus was noted in the white-red junction. This was not amenable to repair. This was debrided back to stable base with straight baskets and a motorized shaver. A corresponding grade 2-3 chondral injury was noted involving the central posterior portion medial femoral condyle measuring 6 x 6 mm. There was a loose chondral fragment. This was debrided back to stable base with a motorized shaver. On inspection of the notch, the anterior cruciate ligament appeared to be intact. On inspection of the lateral compartment, no significant meniscal or cartilage pathology was noted. On inspection of the patellofemoral articulation, there was grade 2-3 chondral changes diffusely. The gutters were clear debris. The knee was then thoroughly irrigated. The portals were closed with Steri-Strips. A sterile dressing was applied in addition to a compression stocking. The patient was awoken from general anesthesia and transferred to recovery room in good condition. Blood loss was estimated at 10 mL. No complications were incurred.
[2021-10-14 10:46] VITALS: TEMP 97.1
[2021-10-14] MEDS: HYDROmorphone 0.5 MG/0.5 ML SYRINGE IVP PRN ×2 (10:48→10:57)
[2021-10-14] MEDS ORDERED: LACTATED RINGERS 1,000 ML IV ONE ×2 (10:52)
[2021-10-14 11:34] VITALS: RESP 18
[2021-10-14] MEDS ORDERED: HYDROcodone/APAP 5-325MG 1 EACH TAB ONE (11:42)
[2021-10-14 11:46] VITALS: BP 121/60; PULSE 79
== END 2021-10-14 13:00 | disposition home or self-care (01) ==
LOC: OR 08:34
PROVIDERS: ATTEND Orthopaedic Surgery
DX: S83.242A Other tear of medial meniscus, current injury, left knee, initial encounter (principal); F41.9 Anxiety disorder, unspecified; F31.9 Bipolar disorder, unspecified; K76.9 Liver disease, unspecified; I10 Essential (primary) hypertension; E03.9 Hypothyroidism, unspecified; Z79.899 Other long term (current) drug therapy; Z79.890 Hormone replacement therapy; Z88.6 Allergy status to analgesic agent; E78.5 Hyperlipidemia, unspecified; F17.200 Nicotine dependence, unspecified, uncomplicated; Z91.040 Latex allergy status; Z80.9 Family history of malignant neoplasm, unspecified; X58.XXXA Exposure to other specified factors, initial encounter
CPT/HCPCS: 29881; J0171; J2250; J1200; J1100; J0690; J2405; J3010; J1885; J2704; J1170; J2001

== ENCOUNTER → 2022-07-16 | Outpatient (CLI) | payer MEDICARE ==
[2022-07-16 15:38] LABS: Basophils # (A) 0.07 X 10*3/uL (0.00-0.10); Basophils % (A) 0.7 %; Eosinophils # (A) 0.07 X 10*3/uL (0.04-0.35); Eosinophils % (A) 0.7 %; HCT 48.2 % (37.2-46.3); HGB 15.7 g/dL (12.0-15.0); Immature Grans, Automated 0.4 %; Lymphocytes # (A) 4.34 X 10*3/uL (0.90-5.00); Lymphocytes % (A) 40.5 %; MCH 31.3 pg (27.0-32.0); MCHC 32.6 g/dL (32.0-37.0); MCV 96.2 fL (80.0-97.0); Mean Platelet Volume 10.3 fL (9.5-12.2); Monocytes # (A) 0.56 X 10*3/uL (0.20-1.00); Monocytes % (A) 5.2 %; NRBC Per 100 WBC 0 /100 WBCS (0.0-0.0); Neutrophils # (A) 5.63 X 10*3/uL (1.80-7.70); Neutrophils % (A) 52.5 %; Platelet Count 270 X 10*3/uL (140-440); RBC 5.01 X 10*6/uL (4.10-5.20); RDW 14.1 % (11.5-14.5); WBC 10.71 X 10*3/uL (4.50-10.00)
[2022-07-16 15:55] LABS: African American GFR (CKD) 109.9 (60.0-200.0); Albumin 4.8 g/dL (3.8-4.9); Albumin/Globulin Ratio 1.78 (1.60-3.17); BUN/Creat Ratio 16.43 Ratio (12.00-20.00); Blood Urea Nitrogen 11.5 mg/dL (9.0-27.0); Calcium 9.9 mg/dL (8.7-10.3); Globulin 2.7 g/dL (1.6-3.3); Non-African American GFR(CKD) 94.8 (60.0-200.0); Potassium 4.7 mmol/L (3.5-5.5); Total Bilirubin 0.3 mg/dL (0.30-1.20); Total Protein 7.5 g/dL (6.2-8.2)
== END | disposition home or self-care (01) ==
LOC: LABWHC1 09:32
PROVIDERS: ATTEND Internal Medicine Medical Oncology
DX: D72.829 Elevated white blood cell count, unspecified (principal)
CPT/HCPCS: 36415; 80053; 85025

== ENCOUNTER → 2023-08-03 | Outpatient (CLI) | payer MEDICARE, OTHER ==
--- NOTE | 2023-08-03 12:06 | CTL ---
EXAMINATION TYPE: CT Low Dose Lung DATE OF EXAM: 08/03/2023 11:55 AM CLINICAL INDICATION:Female, 58 years old with history of [id number] NICOTINE DEPENDENCE; personal hx of t obacco use. 1 pack/ day x 51 years. current smoker. , history of tobacco use. COMPARISON: None. TECHNIQUE: Multiple axial non-contrast scans were obtained from approximately the lung apices through the upper abdomen. Coronal and sagittal reformatted images were obtained. Low dose technique was uti lized. CT DLP: 96.0 mGycm, Automated exposure control for dose reduction was used. CT Contrast: Contrast used: None Oral contrast used: None FINDINGS: ======== Lack of intravenous contrast and low dose technique limits the evaluation of the vascular and soft ti ssue structures. LUNGS: No evidence of pulmonary fibrosis. No evidence of focal consolidation, pneumothorax or pleural effusion. Mild centrilobular emphysema changes. Nodules: RUL: None. RML: None. RLL: None. TRA: None. LLL: None. AIRWAY: Patent and unremarkable. HEART: Size within normal limits. MEDIASTINUM: No gross evidence of adenopathy. VASCULATURE: No aortic aneurysm. MUSCULOSKELETAL: No acute osseous processes, fixation hardware in the lower cervical spine is intact. SOFT TISSUES/LYMPH NODES: Unremarkable. LOWER NECK: No significant findings. UPPER ABDOMEN: No significant findings. IMPRESSION: 1. No pulmonary nodules. 2. Mild emphysema. CT LUNG RAD AND CT CHEST RECOMMENDATION: Lung-Rad 1 Negative: Continue annual screening with LDCT in 12 months. S Modifier (other clinically significant findings): None Recommend smoking cessation (if current smoker), or continuation of smoking cessation (if prior smoke r). Annual screening for lung cancer with low-dose computed tomography is recommended in adults ages 55 to 77 years who have a 30 pack-year smoking history and currently smoke or have quit within the pa st 15 years. Screening should be discontinued once a person has not smoked for 15 years or develops a health problem that substantially limits life expectancy or the ability or willingness to have curat tanner lung surgery. Lung rads 2021 [email or web address]
[2023-08-03 14:52] LABS: HCT 47.4 % (37.2-46.3); HGB 15.2 g/dL (12.0-15.0); MCH 30.4 pg (27.0-32.0); MCHC 32.1 g/dL (32.0-37.0); MCV 94.8 FL (80.0-97.0); Mean Platelet Volume 10.8 FL (9.5-12.2); NRBC Per 100 WBC 0 X 10*3/uL (0.00-0.01); Platelet Count 276 X 10*3/uL (140-440); RDW 14.1 % (11.5-14.5); WBC 10.12 X 10*3/uL (4.50-10.00)
[2023-08-03 14:53] LABS: Basophils # (A) 0.08 X 10*3/uL (0.00-0.10); Basophils % (A) 0.8 %; Eosinophils # (A) 0.06 X 10*3/uL (0.04-0.35); Eosinophils % (A) 0.6 %; Lymphocytes % (A) 42.5 %; Monocytes # (A) 0.54 X 10*3/uL (0.20-1.00); Monocytes % (A) 5.3 %; Neutrophils # (A) 5.12 X 10*3/uL (1.80-7.70); Neutrophils % (A) 50.6 %
[2023-08-03 15:28] LABS: ALT 38 U/L (8-44); AST 28 U/L (13-35); Albumin 4.9 g/dL (3.8-4.9); Albumin/Globulin Ratio 1.96 Ratio (1.60-3.17); Alkaline Phosphatase 102 U/L (41-126); Blood Urea Nitrogen 10.8 mg/dL (9.0-27.0); Carbon Dioxide 25.5 mmol/L (21.6-31.8); Chloride 105 mmol/L (96-109); Globulin 2.5 g/dL (1.6-3.3); Glucose 97 mg/dL (70-110); Potassium 4.6 mmol/L (3.5-5.5); Sodium 142 mmol/L (135-145); Total Bilirubin 0.4 mg/dL (0.3-1.2); Total Protein 7.4 g/dL (6.2-8.2)
--- NOTE | 2023-08-05 08:50 | MM ---
Reason for Exam: Screening (asymptomatic). Last mammogram was performed 5 year(s) and 7 month(s) ago. Patient History: Menarche at age 8. First Full-Term at age 15. Postmenopausal. Mother had breast cancer, age 60. Risk Values: Cecilia 5 year model risk: 2.9%. NCI Lifetime model risk: 14.4%. Prior Study Comparison: 07/14/2006 Bilateral Screening Mammogram, [facility]. 09/25/2014 Bilateral MG 3D screening mammo w/cad, Unknown. 12/27/2017 Bilateral MG 3D screening mammo w/cad, Unknown. Tissue Density: There are scattered areas of fibroglandular density. Findings: Analyzed By CAD. There is no suspicious group of microcalcifications or new suspicious mass in either breast. Chronic nodularity and benign-appearing lymph nodes bilaterally. Overall Assessment: Benign, BI-RAD 2 Management: Screening Mammogram of both breasts in 1 year. . Patient should continue monthly self-breast exams. A clinical breast exam by your physician is recommended on an annual basis. This exam should not preclude additional follow-up of suspicious palpable abnormalities. Note on Cecilia scores and lifetime risk: 1. A Cecilia score greater than 3% is considered moderate risk. If this is the case, consider specialist referral to assess eligibility for a risk reducing agent. 2. If overall lifetime risk for the development of breast cancer is 20% or higher, the patient may qualify for future screening with alternating mammogram and breast MRI. Electronically signed and approved by: John Boothe M.D. Radiologis
== END | disposition home or self-care (01) ==
LOC: RADMAMWWP 10:28
PROVIDERS: ATTEND Family Medicine
DX: Z12.31 Encounter for screening mammogram for malignant neoplasm of breast (principal); Z12.2 Encounter for screening for malignant neoplasm of respiratory organs; F17.210 Nicotine dependence, cigarettes, uncomplicated; J43.9 Emphysema, unspecified
CPT/HCPCS: 71271; 77063; 77067; 80053; 85025

== ENCOUNTER → 2024-08-15 | Outpatient (CLI) | payer MEDICARE, OTHER ==
--- NOTE | 2024-08-15 14:28 | CTL ---
EXAMINATION TYPE: CT Low Dose Lung DATE OF EXAM ORDERED: 08/15/2024 COMPARISON: 08/03/2023 CLINICAL INDICATION: Female, 59 years old with history of Z12.2 ENCNTR SCREEN FO F17.210 NICOTINE DEP ENDENCE; [facility], Current smoker 1ppd x 50 years, c/o wheezing., Lung cancer screening, History of Smokin g/tobacco use. TECHNIQUE: Low dose computed tomography scan was performed through the chest at 1 mm thick sections a nd reconstructed images in multiple planes at 1 mm and [address] DLP: 125.[address] CTDI: 3.6 mGy Automated exposure control for dose reduction was used. CT DIAGNOSTIC QUALITY: Satisfactory EXAMINATION TYPE: CT Low Dose Lung DATE OF EXAM ORDERED: 08/15/2024 CLINICAL INDICATION: Female, 59 years old with history of Z12.2 ENCNTR SCREEN FO F17.210 NICOTINE DEP ENDENCE, history of tobacco use, Lung cancer screening CT DLP: 125.[address] CTDI: 3.6 mGy Automated exposure control for dose reduction was used. Comparison: None TECHNIQUE: Low dose computed tomography scan was performed through the chest at 1 mm thick sections a nd reconstructed images in multiple planes at 1 mm and [address] DIAGNOSTIC QUALITY: Satisfactory FINDINGS: There are mild emphysematous changes.There is no suspicious lung mass or nodule The lungs are clear and there is no abnormal airspace consolidation or interstitial density. There is no mediastinal, hilar or axillary adenopathy. There is no pleural effusion, pleural thickening or pneumothorax. No focal osseous lesions are seen. Limited scans the upper abdomen reveals no gross abnormality IMPRESSION: 1. Lung rads Category 1 negative. Continue routine screening at yearly intervals. 2. Mild emphysematous changes. [facility], , 08/15/2024 2:26 PM
== END | disposition home or self-care (01) ==
LOC: RADCTMAIN 13:53
PROVIDERS: ATTEND Family Medicine
DX: Z12.2 Encounter for screening for malignant neoplasm of respiratory organs (principal); F17.210 Nicotine dependence, cigarettes, uncomplicated; J43.9 Emphysema, unspecified
CPT/HCPCS: 71271

== ENCOUNTER → 2024-08-15 | Outpatient (CLI) | payer MEDICARE, OTHER ==
--- NOTE | 2024-08-15 14:23 | MM ---
Reason for Exam: Screening (asymptomatic). Last mammogram was performed 1 year(s) and 1 month(s) ago. Patient History: Menarche at age 8. First Full-Term at age 15. Postmenopausal. Mother had breast cancer, age 60. Risk Values: Cecilia 5 year model risk: 3.0%. NCI Lifetime model risk: 14.0%. Prior Study Comparison: 09/25/2014 Bilateral MG 3D screening mammo w/cad, Unknown. 12/27/2017 Bilateral MG 3D screening mammo w/cad, Unknown. 08/03/2023 Bilateral MG 3D screening mammo w/cad, [facility]. Tissue Density: There are scattered areas of fibroglandular density. Findings: Analyzed By CAD. Stable 5 mm oval circumscribed mass in the middle depth outer upper aspect left breast. Benign-appearing bilateral axillary lymph nodes are redemonstrated. There is no suspicious new group of microcalcifications or new suspicious mass in either breast. Overall Assessment: Benign, BI-RAD 2 Management: Screening Mammogram of both breasts in 1 year. . Patient should continue monthly self-breast exams. A clinical breast exam by your physician is recommended on an annual basis. This exam should not preclude additional follow-up of suspicious palpable abnormalities. Note on Cecilia scores and lifetime risk: 1. A Cecilia score greater than 3% is considered moderate risk. If this is the case, consider specialist referral to assess eligibility for a risk reducing agent. 2. If overall lifetime risk for the development of breast cancer is 20% or higher, the patient may qualify for future screening with alternating mammogram and breast MRI. [facility], , 08/15/2024 2:19 PM. Electronically signed and approved by: Chung Miranda M.D.
== END | disposition home or self-care (01) ==
LOC: RADMAMWWP 13:18
PROVIDERS: ATTEND Family Medicine
DX: Z12.31 Encounter for screening mammogram for malignant neoplasm of breast (principal); R92.323 Mammographic fibroglandular density, bilateral breasts; Z78.0 Asymptomatic menopausal state; Z80.3 Family history of malignant neoplasm of breast
CPT/HCPCS: 77063; 77067

== ENCOUNTER → 2024-08-15 | Outpatient (CLI) | payer MEDICARE, OTHER | END | disposition home or self-care (01) | LOC: LABPAT 13:23 | PROVIDERS: ATTEND Orthopaedic Surgery | DX: Z01.812 Encounter for preprocedural laboratory examination (principal); M17.11 Unilateral primary osteoarthritis, right knee; Z22.322 Carrier or suspected carrier of Methicillin resistant Staphylococcus aureus | CPT/HCPCS: 87070 ==

== ENCOUNTER → 2024-09-15 | Outpatient (CLI) | payer MEDICARE, OTHER ==
--- NOTE | 2024-09-15 18:02 | CA ---
Transthoracic Echo Report Name: Arabella Mohr Age: 59 Gender: F : 1965 Exam Date: 09/15/2024 13:51 Exam Location: [facility] Ht (in): 60 Wt (lb): 213 Ordering Physician: Sima Delcid DO Attending/Referring Phys: Sima Delcid DO Trust Manager Arabella Amaya RDCS Procedure CPT: Indications: 151.7 CARDIOMEGALY Cardiac Hx: Technical Quality: Good Contrast 1: Total Dose (mL): Contrast 2: Total Dose (mL): MEASUREMENTS (Male / Female) Normal Values 2D ECHO LV Diastolic Diameter PLAX 4.4 cm 4.2 - 5.9 / 3.9 - 5.3 cm LV Systolic Diameter PLAX 2.7 cm IVS Diastolic Thickness 1.3 cm 0.6 - 1.0 / 0.6 - 0.9 cm LVPW Diastolic Thickness 1.3 cm 0.6 - 1.0 / 0.6 - 0.9 cm LV Relative Wall Thickness 0.6 RV Internal Dim ED PLAX 2.9 cm LVOT Diameter 2.1 cm LV Diastolic Volume MOD BP 87.7 cm??? 67 - 155 / 56 - 104 cm??? LV Systolic Volume MOD BP 33.9 cm??? 22 - 58 / 19 - 49 cm??? LV Ejection Fraction MOD BP 61.4 % >= 55 % LV Cardiac Index MOD BP 2381.7 cm???/min???m??? LV Diastolic Volume MOD 4C 79.4 cm??? LV Systolic Volume MOD 4C 31.5 cm??? LV Ejection Fraction MOD 4C 60.3 % LV Cardiac Index MOD 4C 2117.0 cm???/min???m??? LV Diastolic Length 4C 7.4 cm LV Systolic Length 4C 5.4 cm LV Diastolic Volume MOD 2C 90.9 cm??? LV Systolic Volume MOD 2C 34.8 cm??? LV Ejection Fraction MOD 2C 61.7 % LV Cardiac Index MOD 2C 2480.3 cm???/min???m??? LV Diastolic Length 2C 6.9 cm LV Systolic Length 2C 5.7 cm M-MODE Aortic Root Diameter MM 3.3 cm LA Systolic Diameter MM 3.1 cm LA Ao Ratio MM 0.9 AV Cusp Separation MM 2.1 cm DOPPLER AV Peak Velocity 148.1 cm/s AV Peak Gradient 8.8 mmHg AV Mean Velocity 90.6 cm/s AV Mean Gradient 4.1 mmHg AV Velocity Time Integral 26.3 cm AI Peak Velocity 284.1 cm/s AI Peak Gradient 32.3 mmHg AI Pressure Half Time 616.4 ms LVOT Peak Velocity 106.6 cm/s LVOT Peak Gradient 4.5 mmHg LVOT Velocity Time Integral 22.9 cm LVOT Stroke Volume 79.7 cm??? LVOT Stroke Volume Index 41.6 ml/m??? LVOT Cardiac Index 3525.1 cm???/min???m??? AV Area Cont Eq vti 3.0 cm??? AV Area Cont Eq pk 2.5 cm??? Mitral E Point Velocity 71.8 cm/s Mitral A Point Velocity 90.2 cm/s Mitral E to A Ratio 0.8 MV Deceleration Time 167.6 ms MV E' Velocity 10.7 cm/s Mitral E to MV E' Ratio 6.7 RVOT Peak Velocity 58.1 cm/s RVOT Peak Gradient 1.4 mmHg FINDINGS Left Ventricle Left ventricular ejection fraction is estimated at 55-60 %. Normal left ventricular systolic function with no obvious regional wall motion abnormalities. Left ventricular cavity size normal. Mildly increased left ventricular wall thickness. Right Ventricle Normal right ventricular size and function. Right ventricular systolic pressure within normal limits. Right Atrium Normal right atrial size. Left Atrium Normal left atrial size. Secundum atrial septal defect. Mitral Valve Structurally normal mitral valve. Mild mitral regurgitation. No mitral stenosis. Aortic Valve Trileaflet aortic valve. Mild aortic regurgitation. No aortic stenosis.aortic valve sclerosis. Tricuspid Valve Structurally normal tricuspid valve. Mild tricuspid regurgitation. No tricuspid stenosis. Pulmonic Valve Structurally normal pulmonic valve. . No pulmonic stenosis. Pericardium No pericardial or pleural effusion. Aorta Normal size aortic root and proximal ascending aorta. CONCLUSIONS 1. Normal ventricle size and systolic function 2. Probable ASD, secundum in the with [id number] shunting 3. Mild aortic regurgitation 4. Mild mitral and tricuspid regurgitation Previewed by: Dr. Joe Cuellar MD (Electronically Signed) Final Date: 15 September 2024 18:01
== END | disposition home or self-care (01) ==
LOC: RADECHMAIN 13:08
PROVIDERS: ATTEND Family Medicine
DX: I08.2 Rheumatic disorders of both aortic and tricuspid valves (principal)
CPT/HCPCS: 93306